=== PATIENT | female | born 1995 | race Caucasian/White ===

== ENCOUNTER 2022-01-29 13:08 | Emergency (ER) | payer OTHER ==
[2022-01-29 13:17] VITALS: BMI 27.4
[2022-01-29] MEDS ORDERED: FAMOTIDINE 20 MG TABLET PO ONE (13:39)
[2022-01-29] MEDS ORDERED: MAG HYDROX/AL HYDROX/SIMETH -MYLANTA- ORAL SUSPENSION PO ONE (13:39)
[2022-01-29] MEDS ORDERED: ONDANSETRON *ODT* 4 MG TABLET SL ONE (13:45)
[2022-01-29] MEDS ORDERED: ONDANSETRON *ODT* 4 MG TABLET ONE ×2 (13:46→13:53)
[2022-01-29] MEDS ORDERED: ACETAMINOPHEN 325 MG TABLET (FP) ONE ×2 (13:46→13:53)
[2022-01-29] MEDS ORDERED: ACETAMINOPHEN 325 MG TABLET (FP) PO ONE (13:46)
[2022-01-29] MEDS ORDERED: MAG HYDROX/AL HYDROX/SIMETH 30 ML UNIT-DOSE CUP ONE ×2 (13:46→13:53)
[2022-01-29] MEDS ORDERED: FAMOTIDINE 20 MG TABLET ONE ×2 (13:46→13:53)
[2022-01-29 16:08] LABS: EPITHELIAL CELLS MODERATE /hpf; URINE MUCUS 1+
[2022-01-29 17:02] VITALS: BP 119/75; PULSE 89; TEMP 99
== END 2022-01-29 17:23 | disposition home or self-care (01) ==
LOC: FER 13:08
DX: R11.2 Nausea with vomiting, unspecified (principal)
CPT/HCPCS: 81003; 81015; 84703; 87086; 99283-25; C9803-CS; Q0162; U0003; U0005